=== PATIENT | female | born 2000 | race Caucasian/White ===

== ENCOUNTER 2025-03-12 12:56 | Outpatient (REF) | payer OTHER, SELFPAY | END 2025-03-12 12:57 | disposition home or self-care (01) | LOC: HO.LAB 12:56 | PROVIDERS: PCP Physician Assistant Medical; Visit Provider Nurse Practitioner Family | DX: Z13.89 Encounter for screening for other disorder (principal) ==

== ENCOUNTER 2025-03-12 12:56 | Outpatient (AMB) | payer OTHER, SELFPAY ==
--- OUTSIDE RECORDS SUMMARY | 2024-08-28 06:15 | XMS_ITS ---
Author Organization [facility] [address] Address [address] [place] [address] Care Team Providers Care Digital Ad Trafficker Name Role Phone ANSLEY ALLISON Unavailable [phone] REASON FOR VISIT pt here for Tirzepatide injection; pt signed consent; 5mg administered subcutaneously into left arm; pt tolerated well and left in stable condition Medications Medication SIG (Take, Route, Frequency, Duration) Notes Start Date End Date Status Tirzepatide-Weight Management 2.5 MG/0.5ML 0.5 mL Subcutaneous once a week Active Zepbound 5 MG/0.5ML 5mg weekly Subcutane ous weekly; Duration: 30 days Active Encounters Encounter Location Date Provider Diagnosis [facility] [address] [place] [phone] 08/28/2024 ANSLEY ALLISON Plan Of Treatment No Information Medications Administered Medication Instructions Date of Administration Dosage Notes Tirzepatide 08/28/2024 5 mg Progress Notes * DAVID RIBEIRO MDOB: 8 (24 yo F)Acc No.[id number]:08/28/2024 Patient: Aruna WagonerEZRAGEOVANIDAVID M Provider: Vitor ALLISON NP :2000 A ge:24 Y S ex:Female Date:08/28/2024 Address:[address] , [facility] Subjective: * Chief Complaints: * 1 . pt here for Tirzepatide injection; pt signed consent; 5mg administered subcutaneously into left arm; pt tolerated well and left in stable condition. * Medical History: * Medications: T aking Zepbound 5 MG/0.5ML Solution Auto-injector 5mg weekly Subcutaneous weekly , Taking Tirzepatide-Weight Management 2.5 MG/0.5ML Solution Auto-injector 0.5 mL Subcutaneous once a week Objective: * Vitals: Assessment: Plan: * Treatment: * Therapeutic Injections: Tirzepatide : 5 mg (Route: Subcutaneous) given by Lisa Landry on subcutaneus * Images: Billing Information: * Visit Code: * Procedure Codes: * Electronic signature of JOSY ALLISON on 03/12/2025 at 03:48 PM EDT Sign off status: Pending * Provider: Vitor ALLISON NP Date: 0 08/28/2024 Generated for Fanny victoria/Jozef/Alon on: 03/12/2025 03:48 PM EDT
--- OUTSIDE RECORDS SUMMARY | 2024-09-11 06:15 | XMS_ITS ---
Author Organization [facility] [address] Address [address] [place] [address] Care Team Providers Care Soft Work Cigar Machine Operator Name Role Phone ANSLEY ALLISON Unavailable [phone] REASON FOR VISIT 5mg Encounters Encounter Location Date Provider Diagnosis [facility] [address] [address] 09/11/2024 ANSLEY ALLISON Plan Of Treatment No Information Progress Notes * DAVID RIBEIRO MDOB: 8 (24 yo F)Acc No.[id number]:09/11/2024 Patient: DAVID FINNEY Provider: Vitor ALLISON NP :2000 A ge:24 Y S ex:Female Date:09/11/2024 Address:[address] , [facility] Subjective: * Chief Complaints: * 1 . 5mg. * Medical History: Objective: * Vitals: Assessment: Plan: * Treatment: * Images: Billing Information: * Visit Code: * Procedure Codes: * Electronic signature of JOSY ALLISON on 03/12/2025 at 03:48 PM EDT Sign off status: Pending * Provider: Vitor ALLISON NP Date: 09/11/2024 Generated for Fanny victoria/Jozef/Wesitting on: 0 03/12/2025 03:48 PM EDT
--- OUTSIDE RECORDS SUMMARY | 2024-09-12 06:15 | XMS_ITS ---
Author Organization [facility] [address] Address [address] [place] [address] Care Team Providers Care Manager Recruitment Name Role Phone ANSLEY ALLISON Unavailable [phone] REASON FOR VISIT 2.5mg Encounters Encounter Location Date Provider Diagnosis [facility] [address] [address] 09/12/2024 ANSLEY ALLISON Plan Of Treatment No Information Progress Notes * DAVID RIBEIRO MDOB: 8 (24 yo F)Acc No.[id number]:09/12/2024 Patient: DAVID FINNEY Provider: Vitor ALLISON NP :2000 A ge:24 Y S ex:Female Date:09/12/2024 Address:[address] , [facility] Subjective: * Chief Complaints: * 1 . 2.5mg. * Medical History: Objective: * Vitals: Assessment: Plan: * Treatment: * Images: Billing Information: * Visit Code: * Procedure Codes: * Electronic signature of JOSY ALLISON on 03/12/2025 at 03:49 PM EDT Sign off status: Pending * Provider: Vitor ALLISON NP Date: 09/12/2024 Generated for Fanny victoria/Jozef/eTransmitting on: 0 03/12/2025 03:49 PM EDT
--- OUTSIDE RECORDS SUMMARY | 2024-09-25 06:45 | XMS_ITS ---
Author Organization [facility] [address] Address [address] [place] [address] Care Team Providers Care Transfer Car Operator Drier Name Role Phone ANSLEY ALLISON Unavailable [phone] REASON FOR VISIT trize 5mg Encounters Encounter Location Date Provider Diagnosis [facility] [address] [address] 09/25/2024 ANSLEY ALLISON Plan Of Treatment No Information Progress Notes * DAVID RIBEIRO MDOB: 8 (24 yo F)Acc No.[id number]:09/25/2024 Patient: DAVID FINNEY Provider: Vitor ALLISON NP :2000 A ge:24 Y S ex:Female Date:09/25/2024 Address:[address] , [facility] Subjective: * Chief Complaints: * 1 . Trize 5mg. * Medical History: Objective: * Vitals: Assessment: Plan: * Treatment: * Images: Billing Information: * Visit Code: * Procedure Codes: * Electronic signature of JOSY ALILSON on 03/12/2025 at 03:48 PM EDT Sign off status: Pending * Provider: Vitor ALLISON NP Date: 0 09/25/2024 Generated for Fanny victoria/Jozef/eTransmitting on: 0 03/12/2025 03:48 PM EDT
--- NOTE | 2025-03-12 12:59 | MHC.OFFVIS ---
Vital Signs 03/12/25 13:12 Height 5 ft 6 in Weight 170 lb BMI 27.4 BP 136/76 Blood Pressure Location Rt brachial Position Sitting Pulse 76 Pulse Source Pulse Oximeter Pulse Oximetry (%) 98 Oxygen Delivery Method Room Air Intake Visit Reasons: GERD initial eval. Added from cancellation list Intake Note: New pt for initial GERD eval CC: C.O. GERD, foreign body sensation in the throat / upper chest, generalized abd pain, and intermittent constipation and diarrhea. No additional concerns. Pt reports taking omeprazole and pepto intermittently depending on severity of sx. Edge Trimming Machine Operator Required: No Accompanied by: Self / Same As Patient Allergies No Known Allergies Allergy (Verified 03/12/25 12:59) HPI HPI GERD initial eval. Added from cancellation list: Details: 24 years old female with past medical history of GERD is here today for initial consultation. Patient was sent to us by her PCP. Patient reports that for a long time she has been having epigastric pain postprandially. She feels like no matter what she eats she will have pain. Abdominal bloating. Bowel movements between constipation and diarrhea. Patient tried changing her diet. Patient feels many times like food gets stuck in her throat when eating. It happens randomly not only will solid food sometimes with soft food as well. Patient reports occasional dyspepsia with dysphagia, without odynophagia. Patient denies melena, hematochezia, unintentional weight loss or ribbon like stools. Patient takes omeprazole and sometimes Pepto-Bismol when she has symptoms. Does not take anything on a regular basis [facility] Medical History (Updated 04/16/25 @ 19:28 by Maria Del Carmen Goldman [facility]) Migraine GERD (gastroesophageal reflux disease) Surgical History (Updated 03/12/25 @ 13:09 by JESSICA Martinez) H/O rhinoplasty Family History (Updated 03/12/25 @ 13:04 by JESSICA Martinez) Maternal Grandfather CHF (congestive heart failure) Maternal Grandmother Breast cancer Thyroid cancer Paternal Grandfather Diabetes Mother Hemochromatosis Social History (Updated 03/12/25 @ 13:04 by JESSICA Martinez) Alcohol intake: never Patient Tobacco Use Status: Never used Tobacco Review of Systems Const Denies weight gain and Denies weight loss ENT Reports no additional complaints, Reports dysphagia and Denies odynophagia Card Reports no additional complaints Resp Reports no additional complaints GI Reports abdominal pain (Epigastric), Denies belching, Denies melena, Reports bloating, Denies change in bowel habits, Reports constipation, Reports dysphagia, Denies excessive flatus, Reports dyspepsia, Reports heartburn, Denies diarrhea, Reports loose stools, Denies nausea, Denies odynophagia and Denies vomiting Reports no additional complaints Musc Reports no additional complaints Neuro Reports no additional complaints Psych Reports no additional complaints Endo Reports no additional complaints Physical Exam Vital Signs: Last Vital Signs Pulse 76 03/12/25 13:12 BP 136/76 03/12/25 13:12 Pulse Ox 98 03/12/25 13:12 Oxygen Delivery Method Room Air 03/12/25 13:12 BMI result Body Mass Index 27.4 Const General: healthy appearing, no acute distress and well developed Nutritional Appearance: well nourished Orientation/consciousness: patient oriented x3 Resp Effort & Inspection: normal respiratory effort, able to speak in complete sentences, no tracheal deviation and symmetric chest movement Auscultation: clear to auscultation bilaterally Cardio Rate: regular rate GI Inspection: Yes normal to inspection and No distended Palpation (GI): Soft to palpation, not firm, nontender and No hepatosplenomegaly present Auscultation: normal bowel sounds General: Yes no CVA tenderness Back/Spine/Pelvis Back: no CVA tenderness Skin General skin exam: elasticity normal, turgor normal and dry skin Neuro General: patient oriented x3 Psych Appearance: grossly normal Mental Status: mental status grossly normal Assessment & Plan Assessment & Plan (1) GERD (gastroesophageal reflux disease): Code(s): K21.9 - Gastro-esophageal reflux disease without esophagitis Category: Medical Qualifiers: Esophagitis presence: esophagitis presence not specified Qualified Code(s): K21.9 - Gastro-esophageal reflux disease without esophagitis (2) Globus sensation: Code(s): R09.89 - Other specified symptoms and signs involving the circulatory and respiratory systems (3) Postprandial epigastric pain: Code(s): R10.13 - Epigastric pain (4) Postprandial abdominal bloating: Code(s): R14.0 - Abdominal distension (gaseous) (5) Dysphagia: Code(s): R13.10 - Dysphagia, unspecified Qualifiers: Dysphagia type: esophageal phase Qualified Code(s): R13.19 - Other dysphagia Plan Patient was encouraged to avoid dietary triggers and late night snacking. Staying upright for minimum 3 hours after meals discussed with patient. Patient will be sent for upper endoscopy. Will check H pylori breath test she will start taking Pepcid twice a day and return for testing. Will resume with omeprazole daily after her test. If positive will treat empirically. Will be sent for upper GI with barium swallow as well. Will check fecal calprotectin, transglutaminase, CBC, tired H study, vitamin D, B12, folate and lipase ordered. I will send patient for colonoscopy as well. Change in bowel pattern. Rule out IBD versus IBS. We however discussed with patient flow FODMAP diet. List of Food recommended as well as list of food to avoid given to patient. Orders: Orders Lipase 03/18/25 R10.9 - Unspecified abdominal pain Vitamin D 25-OH (D2 and D3) 03/18/25 E55.9 - Vitamin D deficiency, unspecified Transglutaminase Ab IgG 03/18/25 R10.9 - Unspecified abdominal pain C Reactive Protein 03/18/25 K58.9 - Irritable bowel syndrome, unspecified Calprotectin, Fecal 03/12/25 R15.9 - Full incontinence of feces H Pylori Breath Test 03/12/25 K21.9 - Gastro-esophageal reflux disease without esophagitis Comprehensive Met. Panel 03/18/25 K21.9 - Gastro-esophageal reflux disease without esophagitis Vitamin B12 and Folate 03/18/25 R19.7 - Diarrhea, unspecified TSH reflex Free T4 03/18/25 K59.00 - Constipation, unspecified Transglutaminase IgA 03/18/25 R10.9 - Unspecified abdominal pain FL upper GI w air w Ba Swallow 03/12/25 K21.9 - Gastro-esophageal reflux disease without esophagitis Referrals GI Procedure Notification Z12.11 - Encounter for screening for malignant neoplasm of colon Medications: New famotidine (Pepcid) 20 mg PO DAILY 30 tabs 0RF K21.9 - Gastro-esophageal reflux disease without esophagitis Coding Level of Care Code New Pt Level 4 (84965) Diagnoses Gastroesophageal reflux disease, unspecified whether esophagitis present K21.9 Esophagitis presence: esophagitis presence not specified Globus sensation R09.89 Postprandial epigastric pain R10.13 Postprandial abdominal bloating R14.0 Esophageal dysphagia R13.19 Dysphagia type: esophageal phase Time Spent (min) 50 Comment 35 minutes spent with patient and additional 15 minutes spent reviewing her records
[2025-03-12 13:12] VITALS: BP 136/76; PULSE 76; O2SAT 98; BMI 27.4
--- OUTSIDE RECORDS SUMMARY | 2025-03-12 15:48 | XMS_ITS | Clinical Summary ---
Author Organization [facility] Address [address] [place] [phone] Phone Care Team Providers Care History Tutor Name Role Phone Pcp, Unknown Primary Care Provider Unavailabl e Allergies No known active allergies Medications albuterol 90 mcg/actuation inhaler Inhale 2 puffs into the lungs every 6 (six) hours as needed for wheezing. 1 Inhaler 05/26/20 19 Active Additional Information Patient not taking.Reported on 08/24/2022 celecoxib (CELEBREX) 200 MG capsule TAKE 1 CAPSULE BY MOUTH TWICE DAILY. START 1 DAY PRE-OP 06/16/20 21 Active HYDROcodone-acetam inophen (NORCO) 5-325 mg per tablet TAKE 1 TABLET BY MOUTH EVERY 6 HOURS NEEDED FOR PAIN FOR 4 DAYS 06/16/20 21 Active ondansetron (ZOFRAN-ODT) 4 MG disintegrating tablet DISSOLVE 1 TABLET ON THE TONGUE EVERY 12 HOURS NEEDED FOR NAUSEA 06/16/20 21 Active spironolactone (ALDACTONE) 50 MG tablet Take 50 mg by mouth 2 (two) times a day. 04/06/20 21 Active tirzepatide (MOUNJARO) 2.5 mg/0.5 mL PnIj subcutaneous pen Inject 5 mg under the skin every 14 (fourteen) days. Active ondansetron (ZOFRAN-ODT) 4 MG disintegrating tablet (To-Go) Take 1-2 tablet(s) by mouth every 8 hours as needed for nausea/vomiting 6 tablet 08/31/19 25 Active Active Problems No known active problems Immunizations Immunization Administration Dates Next Due COVID-19 (Pre-04/11) Pfizer Vaccine, mRNA, PF 07/19/2021,11/03/2020,10/10/2020 DTaP 06/29/2002, 0,1998,09/01,1998 Dtap, 5 Pertussis Antigens 06/29/2002,,1998,09/01,1998 HPV,quadrivalent 05/23/2014,04/20/2013, 3 Hepatitis A, ped/adol, 2 dose 05/23/2014, 013 Hepatitis B 02/06/1999,1998,1998 Hib, unspecified formulation 07/30/1999, 1998,1998,07/16 Hib,PRP-T 08/17/1999, 9,1998,07/16 IPV 06/29/2002, 9,1998,07/16 Influenza Quadrivalent Prese rvative Free IM 04/29/2021,05/21/2016,02/15/2013 Influenza Quadrivalent w/ Pr eservative IM 05/08/2015,05/23/2014 Influenza, Unspecified Formulation 05/17,05/05/2021,04/21/2010,04/11 MMR 06/29/2002,07/30/1999 Meningococcal MCV4P 05/08/2015,01/14/2011 PPD Test 12/24/2021 Polio - OPV 05/01/1999,1998,1998 Tdap 07/19/2021,01/14/2011 Varicella 01/14/2011,04/11/2009,05/01/1999 Social History Tobacco Use Types Packs/Day Years Used Date Smoking Tobacco: Never Smokeless Tobacco: Never Tobacco Cessation:Counseling Given: Not Answered Alcohol Use Standard Drinks/Week Comments Yes 0 (1 standard drink = 0.6 oz pur e alcohol) socially Education Answer Date Recorded Are you interested in more education? Not on joe e 10/15/2022 Are you concerned about learning? Not on file 10/15/2022 No 10/15/2022 No 10/15/2022 Digital Access Answer Date Recorded No 11/13/2022 No 11/13/2022 Reliable internet access at home? Not on file 11/13/2022 Device with a working camera? Not on file Intimate Partner Violence Answer Date R ecorded Are you denied basic needs s uch as food, clothing, or medical care? No 08/30/2024 In the past 12 months have y ou been in a relationship with a person who hurts, threatens, or tries to control you? No 08/30/2024 Are you denied basic needs s uch as food, clothing, or medical care? No 08/30/2024 In the past 12 months have y ou been in a relationship with a person who hurts, threatens, or tries to control you? No 08/30/2024 Comments No Sex and Gender Information Value Date Recorded Sex Assigned at Female 08/30/2024 1:50 AM EDT Legal Sex Female 1:32 PM EST Gender Identity Female 08/30/2024 1:50 AM EDT Sexual Orientation Don't know 08/30/2024 1: 50 AM EDT Last Filed Vital Signs Vital Sign Reading Time Taken Comments Blood Pressure 133/68 08/30/2024 4:22 AM EDT Pulse 112 08/30/2024 4:22 AM EDT Temperature 36.9 C (98.4 F) 08/30/2024 4:22 AM EDT Respiratory Rate 17 08/30/2024 4:22 AM EDT Oxygen Saturation 99% 08/30/2024 4:22 AM EDT Inhaled Oxygen Concentration - - Weight 72.6 kg (160 lb) 08/30/2024 1:43 AM EDT Height 167.6 cm (5' 6 ) 08/30/2024 1:43 AM EDT Body Mass Index 25.82 08/30/2024 1:43 AM EDT Plan of Treatment Health Maintenance Due Date Last Done Comments DEPRESSION SCREENING 2010 HEPATITIS C SCREENING 2016 HIV ONE-TIME SCREENING (18-65 YEARS) 2016 PAP SMEAR 2019 SMOKING STATUS SCREENING (Once After 26 Yrs) 2024 INFLUENZA VACCINE (#1) 2025 2, 05/05/2021, 04/29/2021, Additional history exists COVID-19 VACCINE ( season) 2025 07/19/2021, 07/19/2021, 11/03/2020, Additional history exists POTASSIUM LEVEL 08/30/2025 08/30/2024 Adult Td,Tdap Booster 07/19/2031 07/19/2021, 011 HIB VACCINES Completed 08/17/1999, 07/21, 1998, Additional history exists HEPATITIS A VACCINES Completed 05/23/2014, 02/16/20 13 HPV VACCINES Completed 05/23/2014, 06/2012, 02/15/2013 MENINGOCOCCAL VACCINES (ACWY) Completed 05/08/2015, 01/14/2011 MENINGOCOCCAL VACCINES (B) Aged Out N o longer eligible based on patient's age to complete this topic PNEUMOCOCCAL VACCINES (0-49 years) Aged Out No longer eligible based on patient's age to complete this topic Medical Devices Not on file Procedures Procedure Name Priority Date/Time Associated Diagnosis Comments BASIC METABOLIC PANEL STAT 08/30/2024 2:11 AM EDT from Last 3 Months or Most Recently Relevant to Health Maintenance Results * (ABNORMAL) Basic metabolic panel (08/30/2024 2:11 AM EDT) SODIUM 139 133 - 146 mmol/L [facility] CHLORIDE 101 96 - 108 mmol/L [facility] POTASSIUM 3.9 3.3 - 5.1 mmol/L [facility] CO2 23 21 - 35 mmol/L [facility] BUN 9 6 - 19 mg/dL [facility] CREATININE 0.70 0.5 - 1.5 mg/dL [facility] GLUCOSE 136(H) 70 - 99 mg/dL [facility] CALCIUM 9.6 8.4 - 10.3 mg/dL [facility] EGFR >120 >59 mL/min/1.7 3m2 [facility] Comment:Estimated glomerular filtration rate calculated using the CKD-EPI refit equation. ANION GAP 19 10 - 20 mmol/L [facility] Blood 08/30/2024 2:11 AM EDT 08/30/2024 2:14 AM EDT us Sudhir Yadav DO LAB BLOOD ORDERABLES Final Re sult [facility] [address] [place] [id number] from Last 3 Months or Most Recently Relevant to Health Maintenance Insurance [facility] [employer] Care Teams History Tutor Relationship Specialty Start Date End Date Pcp, Unknown PCP - General 08/30/24 Additional Source Comments The information contained in this document represents components of the legal health record. It is not the complete legal health record.[facility]
--- OUTSIDE RECORDS SUMMARY | 2025-03-12 15:48 | XMS_ITS | Patient Health Record ---
Author Organization [facility] [address] Address [address] [place] [address] Care Team Providers Care Scrap Sawyer Name Role Phone ARCELIADOREEN ANSLEY Unavailable [phone] GUILHERME ELIZONDO Unavailable [phone] Sandra Minor Unavailable [phone] SAMSON JUAN ALBERTO Unavailable [phone] Allergies No Known Allergies Reason For Referral No Information Medications Medication SIG (Take, Route, Frequency, Duration) Notes Start Date End Date Status Tirzepatide-Weight Management 2.5 MG/0.5ML 0.5 mL Subcutaneous once a week Active Zepbound 5 MG/0.5ML 5mg weekly Subcutane ous weekly; Duration: 30 days Active Problems Problem Type SNOMED Code ICD Code Onset Dates Problem Status W/U Status Risk Notes Problem Overweight (565423278) Overweight (E66.3) Active confirmed Vital Signs Heart Rate 92 /min 08/14/2024 Blood pressure diastolic 58 mm Hg 08/14/2024 Oximetry 99 % 08/14/2024 Height 66 in 08/14/2024 Blood pressure systolic 110 mm Hg 08/14/2024 Weight 160 lbs 08/14/2024 BMI 25.82 kg/m2 08/14/2024 Encounters Encounter Location Date Provider Diagnosis [facility] [address] [facility] [address] [place] [address] 03/19/2024 ANSLEY ALLISON [facility] [address] [facility] [address] [place] [address] 03/26/2024 ANSLEY ALLISON [facility] [address] [facility] [address] [place] [address] 04/03/2024 ANSLEY ALLISON [facility] [address] [facility] [address] [place] [address] 04/10/2024 ANSLEY BORHOT [facility] [address] [address] [place] [address] 04/19/2024 Sandra Svrcek [facility] [address] [facility] [address] [place] [address] 05/04/2024 ANSLEY BORHOT [facility] [address] [facility] [address] [place], [place] 05/11/2024 ANSLEY BORHOT [facility] [address] [place] [address] 05/12/2024 GUERAOTTO ELIZONDO [facility] [address] [facility] [address] [place], [place] 05/21/2024 ANSLEY BORHOT [facility] [address] [facility] [address] [place], [place] 05/28/2024 ANSLEY BORHOT [facility] [address] [facility] [address] [place], [place] 06/04/2024 ANSLEY BORHOT [facility] [address] [facility] [address] [place], [place] 06/11/2024 ANSLEY BORHOT [facility] [address] [facility] [address] [place], [place] 06/18/2024 ANSLEY BORHOT [facility] [address] [facility] [address] [place], [place] 06/26/2024 ANSLEY BORHOT [facility] [address] [facility] [address] [place], [place] 07/18/2024 ANSLEY BORHOT [facility] [address] [facility] [address] [place] [address] 08/01/2024 ANSLEY BORHOT [facility] [address] [facility] [address] [place], [place] 08/28/2024 ANSLEY BORHOT [facility] [address] [place] [address] 04/28/2024 ANSLEY BORHOT Overweight E66.3 ; B [place] 27.0-27.9,adult Z68.27 and Dietary counseling and surveillance Z71.[address] [facility] [address] [facility] [address] [place], [place] /15/2025 ANSLEY ALLISON Overweight E66.3 ; B [place] 25.0-25.9,adult Z68.25 and Dietary counseling and surveillance Z71.[address] [facility] [address] [facility] [address] [place] [address] 08/14/2024 ANSLEY ALLISON Overweight E66.3 ; B [place] 25.0-25.9,adult Z68.25 and Dietary counseling and surveillance Z71.[address] [facility] [address] [facility] [address] [place] [address] 05/21/2024 ANSLEY PANIAGUAHOT [facility] [address] [facility] [address] [place] [address] 06/08/2024 ANSLEY ARCELIAHOT [facility] [address] [facility] [address] [place], [place] 09/11/2024 ANSLEY PANIAGUAHOT [facility] [address] [facility] [address] [place], [place] 10/23/2024 ANSLEY TELLOCitlalli Assessments Encounter Date Diagnosis (ICD Code) Assessment Notes Treatment Notes Treatment Clinical Notes Section Notes 04/28/2024 Overweight (ICD-10 - E66.3) #Weight Management We discussed criteria for weight loss medications including a BMI of 30 or greater or a BMI of 25-29.9 with comorbid conditions Will try for zbound 5mg depending on insurance cont 5mg comp Tirz Total time spent today was 30 minutes of which greater than 50% was spent on coordinating and counseling Patient has been found to be overweight with a BMI of (27). Patient has overweight class per BMI standards . We are a board certified obesity and weight management practice Patient has trialed behavioral modification, dietary restrictions and exercise for a minimum of 6 months The most recent [place] Association of clinical endocrinologists and [place] [employer] of endocrin[employer] guidelines recommend patients who have overweight BMI or obesity BMI, who also have metabolic syndrome, prediabetes, HLD, and other comorbidities or at risk of developing type 2 diabetes should aim for a weight loss goal of at least 10% of the baseline body weight Patient counseled regarding effects of GLP/GIP-1 agonists, and other FDA approved wgt loss meds with regards to a multifactorial approach of weight loss as mentioned above and not solely appetite suppression. Of note, some information is being carried forward from prior records for informational purposes only and is being cited so that efficiency, safety and quality of the patient's care is not compromised This note was prepared using voice recognition software and direct typing Please excuse inadvertent contract project manager or typing errors, or uncorrected word substitutions Although every attempt has been made by the provider to proofread this document, occasional misspellings and typographical errors may still be present Due to the previous pandemic, and the use of personal protective equipment (PPE) This may decrease voice recognition accuracy Inadvertent contract project manager errors may occur 04/28/2024 BMI 27.0-27.9,adult (ICD-10 - Z68.27) #Weight Management We discussed criteria for weight loss medications including a BMI of 30 or greater or a BMI of 25-29.9 with comorbid conditions Will try for zbound 5mg depending on insurance cont 5mg comp Tirz Total time spent today was 30 minutes of which greater than 50% was spent on coordinating and counseling Patient has been found to be overweight with a BMI of (27). Patient has overweight class per BMI standards . We are a board certified obesity and weight management practice Patient has trialed behavioral modification, dietary restrictions and exercise for a minimum of 6 months The most recent [place] [employer] of clinical endocrinologists and [employer] end[employer]in[employer] guidelines recommend patients who have overweight BMI or obesity BMI, who also have metabolic syndrome, prediabetes, HLD, and other comorbidities or at risk of developing type 2 diabetes should aim for a weight loss goal of at least 10% of the baseline body weight Patient counseled regarding effects of GLP/GIP-1 agonists, and other FDA approved wgt loss meds with regards to a multifactorial approach of weight loss as mentioned above and not solely appetite suppression. Of note, some information is being carried forward from prior records for informational purposes only and is being cited so that efficiency, safety and quality of the patient's care is not compromised This note was prepared using voice recognition software and direct typing Please excuse inadvertent contract project manager or typing errors, or uncorrected word substitutions Although every attempt has been made by the provider to proofread this document, occasional misspellings and typographical errors may still be present Due to the previous pandemic, and the use of personal protective equipment (PPE) This may decrease voice recognition accuracy Inadvertent contract project manager errors may occur 07/04/2024 Overweight (ICD-10 - E66.3) #Weight Management 07/04/2024 We will cut dosing by 50% and dose or every 2 weeks moving forward at 2.5 mg She is at target goal weight She will check with insurance company to see if [employer] [place] cover Zepbound Total time spent today was 30 minutes of which greater than 50% was spent on coordinating and counseling Patient has been found to be overweight with a BMI of (25). Patient has overweight class per BMI standards . We are a board certified obesity and weight management practice Patient has trialed behavioral modification, dietary restrictions and exercise for a minimum of 6 months The most recent [place] [employer] of clinical endocrinologists and [employer] endocrin[employer] guidelines recommend patients who have overweight BMI or obesity BMI, who also have metabolic syndrome, prediabetes, HLD, and other comorbidities or at risk of developing type 2 diabetes should aim for a weight loss goal of at least 10% of the baseline body weight Patient counseled regarding effects of GLP/GIP-1 agonists, and other FDA approved wgt loss meds with regards to a multifactorial approach of weight loss as mentioned above and not solely appetite suppression. Of note, some information is being carried forward from prior records for informational purposes only and is being cited so that efficiency, safety and quality of the patient's care is not compromised This note was prepared using voice recognition software and direct typing Please excuse inadvertent contract project manager or typing errors, or uncorrected word substitutions Although every attempt has been made by the provider to proofread this document, occasional misspellings and typographical errors may still be present Due to the previous pandemic, and the use of personal protective equipment (PPE) This may decrease voice recognition accuracy Inadvertent contract project manager errors may occur 07/04/2024 BMI 25.0-25.9,adult (ICD-10 - Z68.25) #Weight Management 07/04/2024 We will cut dosing by 50% and dose or every 2 weeks moving forward at 2.5 mg She is at target goal weight She will check with insurance company to see if [employer] [place] cover Zepbound Total time spent today was 30 minutes of which greater than 50% was spent on coordinating and counseling Patient has been found to be overweight with a BMI of (25). Patient has overweight class per BMI standards . We are a board certified obesity and weight management practice Patient has trialed behavioral modification, dietary restrictions and exercise for a minimum of 6 months The most recent [place] [employer] of clinical endocrinologists and [employer] endocrinology guidelines recommend patients who have overweight BMI or obesity BMI, who also have metabolic syndrome, prediabetes, HLD, and other comorbidities or at risk of developing type 2 diabetes should aim for a weight loss goal of at least 10% of the baseline body weight Patient counseled regarding effects of GLP/GIP-1 agonists, and other FDA approved wgt loss meds with regards to a multifactorial approach of weight loss as mentioned above and not solely appetite suppression. Of note, some information is being carried forward from prior records for informational purposes only and is being cited so that efficiency, safety and quality of the patient's care is not compromised This note was prepared using voice recognition software and direct typing Please excuse inadvertent contract project manager or typing errors, or uncorrected word substitutions Although every attempt has been made by the provider to proofread this document, occasional misspellings and typographical errors may still be present Due to the previous pandemic, and the use of personal protective equipment (PPE) This may decrease voice recognition accuracy Inadvertent contract project manager errors may occur 08/14/2024 Overweight (ICD-10 - E66.3) #Weight Management 08/14/2024 Increase to 5 mg every 2 weeks for maintenance She is at target goal weight She will check with [employer] to see if [employer] [place] cover Zepbound Total time spent today was 30 minutes of which greater than 50% was spent on coordinating and counseling Patient has been found to be overweight with a BMI of (25). Patient has overweight class per BMI standards . We are a board certified obesity and weight management practice Of note, some information is being carried forward from prior records for informational purposes only and is being cited so that efficiency, safety and quality of the patient's care is not compromised This note was prepared using voice recognition software and direct typing Please excuse inadvertent contract project manager or typing errors, or uncorrected word substitutions Although every attempt has been made by the provider to proofread this document, occasional misspellings and typographical errors may still be present Due to the previous pandemic, and the use of personal protective equipment (PPE) This may decrease voice recognition accuracy Inadvertent contract project manager errors may occur 07/04/2024 Dietary counseling and surveillance (ICD-10 - Z71.3) #Weight Management 07/04/2024 We will cut dosing by 50% and dose or every 2 weeks moving forward at 2.5 mg She is at target goal weight She will check with [employer] to see if [employer] [place] cover Zepbound Total time spent today was 30 minutes of which greater than 50% was spent on coordinating and counseling Patient has been found to be overweight with a BMI of (25). Patient has overweight class per BMI standards . We are a board certified obesity and weight management practice Patient has trialed behavioral modification, dietary restrictions and exercise for a minimum of 6 months The most recent [place] [employer] of clinical endocrinologists and [employer] endocrinology guidelines recommend patients who have overweight BMI or obesity BMI, who also have metabolic syndrome, prediabetes, HLD, and other comorbidities or at risk of developing type 2 diabetes should aim for a weight loss goal of at least 10% of the baseline body weight Patient counseled regarding effects of GLP/GIP-1 agonists, and other FDA approved wgt loss meds with regards to a multifactorial approach of weight loss as mentioned above and not solely appetite suppression. Of note, some information is being carried forward from prior records for informational purposes only and is being cited so that efficiency, safety and quality of the patient's care is not compromised This note was prepared using voice recognition software and direct typing Please excuse inadvertent contract project manager or typing errors, or uncorrected word substitutions Although every attempt has been made by the provider to proofread this document, occasional misspellings and typographical errors may still be present Due to the previous pandemic, and the use of personal protective equipment (PPE) This may decrease voice recognition accuracy Inadvertent contract project manager errors may occur 04/28/2024 Dietary counseling and surveillance (ICD-10 - Z71.3) #Weight Management We discussed criteria for weight loss medications including a BMI of 30 or greater or a BMI of 25-29.9 with comorbid conditions Will try for zbound 5mg depending on insurance cont 5mg comp Tirz Total time spent today was 30 minutes of which greater than 50% was spent on coordinating and counseling Patient has been found to be overweight with a BMI of (27). Patient has overweight class per BMI standards . We are a board certified obesity and weight management practice Patient has trialed behavioral modification, dietary restrictions and exercise for a minimum of 6 months The most recent [place] [employer] of clinical endocrinologists and [employer] of endocrinology guidelines recommend patients who have overweight BMI or obesity BMI, who also have metabolic syndrome, prediabetes, HLD, and other comorbidities or at risk of developing type 2 diabetes should aim for a weight loss goal of at least 10% of the baseline body weight Patient counseled regarding effects of GLP/GIP-1 agonists, and other FDA approved wgt loss meds with regards to a multifactorial approach of weight loss as mentioned above and not solely appetite suppression. Of note, some information is being carried forward from prior records for informational purposes only and is being cited so that efficiency, safety and quality of the patient's care is not compromised This note was prepared using voice recognition software and direct typing Please excuse inadvertent contract project manager or typing errors, or uncorrected word substitutions Although every attempt has been made by the provider to proofread this document, occasional misspellings and typographical errors may still be present Due to the previous pandemic, and the use of personal protective equipment (PPE) This may decrease voice recognition accuracy Inadvertent contract project manager errors may occur 08/14/2024 BMI 25.0-25.9,adult (ICD-10 - Z68.25) #Weight Management 08/14/2024 Increase to 5 mg every 2 weeks for maintenance She is at target goal weight She will check with [employer] to see if [employer] [place] cover Zepbound Total time spent today was 30 minutes of which greater than 50% was spent on coordinating and counseling Patient has been found to be overweight with a BMI of (25). Patient has overweight class per BMI standards . We are a board certified obesity and weight management practice Of note, some information is being carried forward from prior records for informational purposes only and is being cited so that efficiency, safety and quality of the patient's care is not compromised This note was prepared using voice recognition software and direct typing Please excuse inadvertent contract project manager or typing errors, or uncorrected word substitutions Although every attempt has been made by the provider to proofread this document, occasional misspellings and typographical errors may still be present Due to the previous pandemic, and the use of personal protective equipment (PPE) This may decrease voice recognition accuracy Inadvertent contract project manager errors may occur 08/14/2024 Dietary counseling and surveillance (ICD-10 - Z71.3) #Weight Management 08/14/2024 Increase to 5 mg every 2 weeks for maintenance She is at target goal weight She will check with [employer] to see if [employer] [place] cover Zepbound Total time spent today was 30 minutes of which greater than 50% was spent on coordinating and counseling Patient has been found to be overweight with a BMI of (25). Patient has overweight class per BMI standards . We are a board certified obesity and weight management practice Of note, some information is being carried forward from prior records for informational purposes only and is being cited so that efficiency, safety and quality of the patient's care is not compromised This note was prepared using voice recognition software and direct typing Please excuse inadvertent contract project manager or typing errors, or uncorrected word substitutions Although every attempt has been made by the provider to proofread this document, occasional misspellings and typographical errors may still be present Due to the previous pandemic, and the use of personal protective equipment (PPE) This may decrease voice recognition accuracy Inadvertent contract project manager errors may occur Plan Of Treatment No Information Insurance Providers Payer Name Payer Address Payer Phone Subscriber Number Group Number Insured Name Patient Relationship to Insured Coverage Start Date Coverage End Date CLAFLIN NATHALYGRIM [address] [place] [id number] DAVID RIBEIRO Self - patient is the insured Medications Administered Medication Instructions Date of Administration Dosage Notes Tirzepatide 02/24/2024 2.5 mg Tirzepatide 03/02/2024 2.5 mg Tirzepatide 03/10/2024 2.5 mg Tirzepatide 03/19/2024 2.5 mg Tirzepatide 03/26/2024 2.5 mg Tirzepatide 04/03/2024 5 mg Tirzepatide 04/10/2024 5 mg Tirzepatide 04/19/2024 5 mg Tirzepatide 04/28/2024 5 mg Tirzepatide 05/04/2024 5 mg Tirzepatide 05/11/2024 7.5 mg Tirzepatide 05/21/2024 7.5 mg Tirzepatide 05/28/2024 7.5 mg Tirzepatide 06/04/2024 7.5 mg Tirzepatide 06/11/2024 7.5 mg Tirzepatide 06/18/2024 7.5 mg Tirzepatide 06/26/2024 7.5 mg Tirzepatide 07/04/2024 7.5 mg Tirzepatide 07/18/2024 2.5 mg Tirzepatide 08/01/2024 2.5 mg Tirzepatide 08/14/2024 5 mg Tirzepatide 08/28/2024 5 mg Medical (General) History Medical History History ICD Code weight gain/loss Surgical History Surgery Date(Month/Year) rhinoplasty 06/2021
--- OUTSIDE RECORDS SUMMARY | 2025-03-12 15:49 | XMS_ITS | Encounter Summary ---
Author Organization [facility] Address [address] [place] [address] Care Team Providers Care Compliance Associate Name Role Phone Community, Pcp Primary Care Provider Justin Patricio MD Primary Care Provider Unavail able Encounter Details Date Type Department Care Team Description 09/15/2020 Release of Information Medical Records [address] [place] [id number] Abstract, Provider Social History Tobacco Use Types Packs/Day Years Used Date Smoking Tobacco: Never Assessed Sex Assigned at Date Recorded Not on file Job Start Date Occupation Industry Not on file Not on file Not on file COVID-19 Exposure Response Date Recorded In the last month, have you been in contact with someone who was confirmed or suspected to have Coronavirus / COVID-19? No / Unsure 09/10/2020 3:22 PM EDT documented as of this encounter Plan of Treatment Not on file documented as of this encounter Visit Diagnoses Not on filedocumented in this encounter Care Teams Compliance Associate Relationship Specialty Start Date End Date Community, Pcp PCP - General Internal Medicine 09/08/20 10/25/23 Justin Bustillo MD PCP - General Internal Medicine 10/26/23 documented as of this encounter
--- OUTSIDE RECORDS SUMMARY | 2025-03-12 15:49 | XMS_ITS | Clinical Summary ---
Author Organization [facility] Address [address] [place] [phone] Phone Care Team Providers Care Appraiser [employer] Name Role Phone Unavailable Primary Care Provider Unavailabl e Immunizations Immunization Administration Dates Next Due DTaP 5 06/29/2002,10/22/1999,1998 ,1998,1998 Hep B, ped/adol 02/06/1999,1998,1998 Hib (PRP-T) 08/17/1999,1998,1998 ,1998 IPV 06/29/2002,05/01/1999,1998 ,1998 MMR 06/29/2002,07/30/1999 Varicella 05/01/1999 Family History Relation Name Status Comments Father Alive Father: Alive a nd well Mother Alive Mother: Alive a nd well Other Alive Family h/o: Ali ve and well Sister 1 Alive Sister: Alive a nd well, Alive and well Sister 2 Alive Sister: Alive a nd well, Alive and well Social History Tobacco Use Types Packs/Day Years Used Date Smoking Tobacco: Never Assessed Comments Unknown Sex and Gender Information Value Date Recorded Sex Assigned at Not on file Legal Sex Female 4:15 PM EDT Gender Identity Not on file Sexual Orientation Not on file Plan of Treatment Health Maintenance Due Date Last Done Comments Varicella Vaccines (2 of 2 - 2-dose childhood series) 07/27/2002 05/01/1999 DTaP,Tdap,and Td Vaccines (6 - Tdap) 2009 06/29/2002, 10/22/1999, 1998, Additional history exists HPV Vaccines (1 - 3-dose series) 2013 Influenza Vaccines (#1) 2025 COVID-19 Vaccine ( season) 2025 Hepatitis B Vaccines Completed 02/06/1999, 1998, 1998 HIB Vaccines Completed 08/17/1999, 10/18, 1998, Additional history exists IPV Vaccines Completed 06/29/2002, 04/20, 1998, Additional history exists MMR Vaccines Completed 06/29/2002, 07/30/1999 Hepatitis A Vaccines Aged Out No long er eligible based on patient's age to complete this topic Men B Vaccine Aged Out No longer elig ible based on patient's age to complete this topic Meningococcal Vaccine Aged Out No brenda dorothy eligible based on patient's age to complete this topic Pneumococcal Vaccine Aged Out No long er eligible based on patient's age to complete this topic
--- OUTSIDE RECORDS SUMMARY | 2025-03-12 15:49 | XMS_ITS | Encounter Summary ---
Author Organization [facility] Address [address] [place] [address] Phone Care Team Providers Care Sfdc Solution Architect Name Role Phone Elenita Orlando MD Primary Care Provider [phone] Encounter Details Date Type Department Care Team (Late st Contact Info) Description 02/03/2017 Conversion Encounter [facility] [address] [place] [address] Social History Tobacco Use Types Packs/Day Years Used Date Smoking Tobacco: Never Assessed Comments Unknown Sex and Gender Information Value Date Recorded Sex Assigned at Not on file Legal Sex Female 4:15 PM EDT Gender Identity Not on file Sexual Orientation Not on file documented as of this encounter Plan of Treatment Not on file documented as of this encounter Visit Diagnoses Not on filedocumented in this encounter Care Teams Sfdc Solution Architect Relationship Specialty Start Date End Date Elenita Orlando MD [address] [place] [address] PCP - General 01/28/17 10/05/22 documented as of this encounter
--- OUTSIDE RECORDS SUMMARY | 2025-03-12 15:49 | XMS_ITS | Encounter Summary ---
Author Organization [facility] Address [address] [place] [address] Care Team Providers Care Mainframe Applications Developer Name Role Phone Justin Bustillo MD Primary Care Provider Unavail able Encounter Details Date Type Department Care Team Description 12/12/2023 Transfer Records Medical Records [address] [place] [address] Justin Bustillo MD Social History Tobacco Use Types Packs/Day Years Used Date Smoking Tobacco: Never Smokeless Tobacco: Never Alcohol Use Standard Drinks/Week Comments Never 0 (1 standard drink = 0.6 oz pur e alcohol) Sex Assigned at Date Recorded Not on file Job Start Date Occupation Industry Not on file Not on file Not on file documented as of this encounter Plan of Treatment Not on file documented as of this encounter Visit Diagnoses Not on filedocumented in this encounter Care Teams Mainframe Applications Developer Relationship Specialty Start Date End Date Justin Bustillo MD PCP - General Internal Medicine 10/26/23 documented as of this encounter
--- OUTSIDE RECORDS SUMMARY | 2025-03-12 15:49 | XMS_ITS | Clinical Summary ---
Author Organization [facility] Address [address] [place] [address] Care Team Providers Care Principal Systems Architect Name Role Phone Justin Bustillo MD Primary Care Provider Unavail able Allergies No known active allergies Medications Medication Sig Dispensed Refills Start Date End Date Status simethicone (MYLICON) 80 MG chewable tablet CHEW AND SWALLOW 1 TABLET BY MOUTH THREE TIMES DAILY NEEDED FOR ABDOMINAL BLOATING 0 10/25/2023 Active omeprazole (PRILOSEC) 20 MG capsule 0 10/25/2023 Active Cholecalciferol (Vitamin D3) 25 MCG (1000 UT) Tab Take 1 Tablet by mouth daily. 0 10/26/2023 Active hyoscyamine (Levsin) 0.125 MG tablet Take 1 Tablet by mouth every 6 hours as needed for Cramping for up to 30 days. 120 Tablet 0 11/24/2023 Active Family History Medical History Relation Name Comments CA Breast Maternal Grandmother Relation Name Status Comments Father Alive Maternal Grandfather Maternal Grandmother Alive Mother Alive Paternal Grandfather Alive Paternal Grandmother Alive Sister 1 Alive Sister 2 Alive Social History Tobacco Use Types Packs/Day Years Used Date Smoking Tobacco: Never Smokeless Tobacco: Never Tobacco Cessation:Counseling Given: No Alcohol Use Standard Drinks/Week Comments Never 0 (1 standard drink = 0.6 oz pur e alcohol) Sex Assigned at Date Recorded Not on file Job Start Date Occupation Industry Not on file Not on file Not on file Last Filed Vital Signs Vital Sign Reading Time Taken Comments Blood Pressure 115/73 11/24/2023 2:28 PM EDT Pulse 82 11/24/2023 2:28 PM EDT Temperature - - Respiratory Rate 14 08/17/2022 2:00 PM EST Oxygen Saturation 98% 11/24/2023 2:28 PM EDT Inhaled Oxygen Concentration - - Weight 83.5 kg (184 lb) 11/24/2023 2:28 PM EDT Height 167.6 cm (5' 6 ) 11/24/2023 2:28 PM EDT Body Mass Index 29.7 11/24/2023 2:28 PM EDT Plan of Treatment Health Maintenance Due Date Last Done Comments Covid-19 Vaccine (#1) 1998 BASELINE HEALTH EXAM 18-39 2017 CHOLESTEROL SCREENING 2018 BMI CHECK/ADVISE 06/20/2024 08/17/2022, 08/17/2022 INFLUENZA (#1) 2025 CERVICAL CANCER SCREENING 08/17/2025 08/17/2022 DTAP/TDAP/TD (8 - Td or Tdap) 07/19/2031, 01/14/2011, 06/29/2002, Additional history exists PNEUMOCOCCAL VACCINE FOR HIG H RISK PATIENTS (#1) 2063 Care Teams Principal Systems Architect Relationship Specialty Start Date End Date Justin Bustillo MD PCP - General Internal Medicine 10/26/23
== END 2025-03-12 13:49 | disposition home or self-care (01) ==
LOC: HO.HGI 12:57
PROVIDERS: PCP Physician Assistant Medical; Visit Provider Nurse Practitioner Family
DX: K21.9 Gastro-esophageal reflux disease without esophagitis (principal); R09.89 Other specified symptoms and signs involving the circulatory and respiratory systems; R10.13 Epigastric pain; R14.0 Abdominal distension (gaseous); R13.19 Other dysphagia
CPT/HCPCS: 99204

== ENCOUNTER 2025-03-18 13:05 | Outpatient (REF) | payer OTHER, SELFPAY ==
--- OUTSIDE RECORDS SUMMARY | 2024-08-28 06:15 | XMS_ITS ---
Author Organization [facility] [address] Address [address] [place] [address] Care Team Providers Care Gun Barrel Finisher Name Role Phone ANSLEY ALLISON Unavailable [phone] REASON FOR VISIT pt here for Tirzepatide [...] Active Encounters Encounter Location Date Provider Diagnosis [facility] [address] [place] [phone] 08/28/2024 ANSLEY ALLISON Plan Of Treatment No Information Medications Administered Medication Instructions Date of Administration Dosage Notes Tirzepatide 08/28/2024 5 mg Progress Notes * DAVID RIBEIRO MDOB: 8 (24 yo F)Acc No.[id number]:08/28/2024 Patient: Aruna WagonerEZRAGEOVANIDAVID M Provider: Vitor ALLISON NP :2000 A ge:24 Y S ex:Female Date:08/28/2024 Address:[address] , [facility] Subjective: * Chief Complaints: * 1 . [...] * Electronic signature of JOSY ALLISON on 03/18/2025 at 02:22 PM EDT Sign off status: Pending * Provider: Vitor ALLISON NP Date: 0 08/28/2024 Generated for Fanny victoria/Jozef/Alon on: 03/18/2025 02:22 PM EDT
--- OUTSIDE RECORDS SUMMARY | 2024-09-11 06:15 | XMS_ITS ---
Author Organization [facility] [address] Address [address] [place] [address] Care Team Providers Care Shipping Agent Name Role Phone ANSLEY ALLISON Unavailable [phone] REASON FOR VISIT 5mg Encounters Encounter Location Date Provider Diagnosis [facility] [address] [address] 09/11/2024 ANSLEY ALLISON Plan Of Treatment No Information Progress Notes * DAVID RIBEIRO MDOB: 8 (24 yo F)Acc No.[id number]:09/11/2024 Patient: DAVID FINNEY Provider: Vitor ALLISON NP :2000 A ge:24 Y S ex:Female Date:09/11/2024 Address:[address] , [facility] Subjective: * Chief Complaints: * 1 . 5mg. * Medical History: Objective: * Vitals: Assessment: Plan: * Treatment: * Images: Billing Information: * Visit Code: * Procedure Codes: * Electronic signature of JOSY ALLISON on 03/18/2025 at 02:22 PM EDT Sign off status: Pending * Provider: Vitor ALLISON NP Date: 09/11/2024 Generated for Fanny victoria/Jozef/Wesitting on: 0 03/18/2025 02:22 PM EDT
--- OUTSIDE RECORDS SUMMARY | 2024-09-12 06:15 | XMS_ITS ---
Author Organization [facility] [address] Address [address] [place] [address] Care Team Providers Care Mixer Operator Raw Salt Name Role Phone ANSLEY ALLISON Unavailable [phone] REASON FOR VISIT 2.5mg Encounters Encounter Location Date Provider Diagnosis [facility] [address] [address] 09/12/2024 ANSLEY ALLISON Plan Of Treatment No Information Progress Notes * DAVID RIBEIRO MDOB: 8 (24 yo F)Acc No.[id number]:09/12/2024 Patient: DAVID FINNEY Provider: Vitor ALLISON NP :2000 A ge:24 Y S ex:Female Date:09/12/2024 Address:[address] , [facility] Subjective: * Chief Complaints: * 1 . 2.5mg. * Medical History: Objective: * Vitals: Assessment: Plan: * Treatment: * Images: Billing Information: * Visit Code: * Procedure Codes: * Electronic signature of JOSY ALLISON on 03/18/2025 at 02:22 PM EDT Sign off status: Pending * Provider: Vitor ALLISON NP Date: 09/12/2024 Generated for Fanny victoria/Jozef/eTransmitting on: 03/18/2025 02:22 PM EDT
--- OUTSIDE RECORDS SUMMARY | 2024-09-25 06:45 | XMS_ITS ---
Author Organization [facility] [address] Address [address] [place] [address] Care Team Providers Care Strategic Account Executive Name Role Phone ANSLEY ALLISON Unavailable [phone] REASON FOR VISIT trize 5mg Encounters Encounter Location Date Provider Diagnosis [facility] [address] [address] 09/25/2024 ANSLEY ALLISON Plan Of Treatment No Information Progress Notes * DAVID RIBEIRO MDOB: 8 (24 yo F)Acc No.[id number]:09/25/2024 Patient: DAVID FINNEY Provider: Vitor ALLISON NP :2000 A ge:24 Y S ex:Female Date:09/25/2024 Address:[address] , [facility] Subjective: * Chief Complaints: * 1 . Trize 5mg. * Medical History: Objective: * Vitals: Assessment: Plan: * Treatment: * Images: Billing Information: * Visit Code: * Procedure Codes: * Electronic signature of JOSY ALLISON on 03/18/2025 at 02:22 PM EDT Sign off status: Pending * Provider: Vitor ALLISON NP Date: 0 09/25/2024 Generated for Fanny victoria/Jozef/eTransmitting on: 0 03/18/2025 02:22 PM EDT
--- OUTSIDE RECORDS SUMMARY | 2025-03-18 14:22 | XMS_ITS | Patient Health Record ---
Author Organization [facility] [address] Address [address] [place] [address] Care Team Providers Care Soil Sampler Name Role Phone ARCELIADOREEN ANSLEY Unavailable [phone] GUILHERME ELIZONDO Unavailable [phone] Sandra Minor Unavailable [phone] SAMSON JUAN ALBERTO Unavailable [phone] Allergies No Known Allergies Reason For Referral No Information Medications Medication SIG (Take, Route, Frequency, Duration) Notes Start Date End Date Status Tirzepatide-Weight Management 2.5 MG/0.5ML 0.5 mL Subcutaneous once a week Active Zepbound 5 MG/0.5ML 5mg weekly Subcutane ous weekly; Duration: 30 days Active Problems Problem Type SNOMED Code ICD Code Onset Dates Problem Status W/U Status Risk Notes Problem Overweight (844152642) Overweight (E66.3) Active confirmed Vital Signs Heart Rate 92 /min 08/14/2024 Blood pressure diastolic 58 mm Hg 08/14/2024 Oximetry 99 % 08/14/2024 Height 66 in 08/14/2024 Blood pressure systolic 110 mm Hg 08/14/2024 Weight 160 lbs 08/14/2024 BMI 25.82 kg/m2 08/14/2024 Encounters Encounter Location Date Provider Diagnosis [facility] [address] [facility] [address] [place] [address] 03/19/2024 ANSLEY ALLISON [facility] [address] [facility] [address] [place] [address] 03/26/2024 ANSLEY ALLISON [facility] [address] [facility] [address] [place] [address] 04/03/2024 ANSLEY ALLISON [facility] [address] [address] [place] [address] 04/10/2024 ANSLEY BORHOT [facility] [address] [place] [address] 04/19/2024 Sandra Svrcek [facility] [address] [address] [place] [address] 05/04/2024 ANSLEY BORHOT [facility] [address] [facility] [address] [place], [place] 05/11/2024 ANSLEY BORHOT [facility] [address] [place] [address] 05/12/2024 GUERAOTTO ELIZONDO [facility] [address] [facility] [address] [place], [place] 05/21/2024 ANSLEY BORHOT [facility] [address] [facility] [address] [place], [place] 05/28/2024 ANSLEY BORHOT [facility] [address] [facility] [address] [place], [place] 06/04/2024 ANSLEY BORHOT [facility] [address] [facility] [address] [place], [place] 06/11/2024 ANSLEY BORHOT [facility] [address] [facility] [address] [place], [place] 06/18/2024 ANSLEY BORHOT [facility] [address] [facility] [address] [place], [place] 06/26/2024 ANSLEY BORHOT [facility] [address] [facility] [address] [place], [place] 07/18/2024 ANSLEY BORHOT [facility] [address] [address] [place] [address] 08/01/2024 ANSLEY BORHOT [facility] [address] [address] [place], [place] 08/28/2024 ANSLEY BORHOT [facility] [address] [place] [address] 04/28/2024 ANSLEY BORHOT Overweight E66.3 ; B CT 27.0-27.9,adult Z68.27 and Dietary counseling and surveillance Z71.[address] [facility] [address] [address] [place], [place] /15/2025 ANSLEY ALLISON Overweight E66.3 ; B CT 25.0-25.9,adult Z68.25 and Dietary counseling and surveillance Z71.3 [facility] [address] [address] [place] [address] 08/14/2024 ANSLEY ALLISON Overweight E66.3 ; B CT 25.0-25.9,adult Z68.25 and Dietary counseling and surveillance Z71.[address] [facility] [address] [address] [place] [address] 05/21/2024 ANSLEY PANIAGUAHOT [facility] [address] [facility] [address] [place] [address] 06/08/2024 ANSLEY ARCELIAHOT [facility] [address] [facility] [address] [place], [place] 09/11/2024 ANSLEY PANIAGUAHOT [facility] [address] [facility] [address] [place], [place] 10/23/2024 ANSLEY TELLOCitlalli Assessments Encounter Date [...] minimum of 6 months The most recent [place] [employer] clinical endocrinologists and [employer]ocrin[employer] guidelines recommend patients who [...] software and direct typing Please excuse inadvertent mumps developer or typing errors, or uncorrected word substitutions Although every attempt has been made by the provider to proofread this document, occasional misspellings and typographical errors may still be present Due to the previous pandemic, and the use of personal protective equipment (PPE) This may decrease voice recognition accuracy Inadvertent mumps developer errors may occur 04/28/2024 BMI 27.0-27.9,adult (ICD-10 [...] minimum of 6 months The most recent [place] [employer]ocrinologists and [employer] guidelines recommend patients who [...] software and direct typing Please excuse inadvertent mumps developer or typing errors, or uncorrected word substitutions Although every attempt has been made by the provider to proofread this document, occasional misspellings and typographical errors may still be present Due to the previous pandemic, and the use of personal protective equipment (PPE) This may decrease voice recognition accuracy Inadvertent mumps developer errors may occur 07/04/2024 Overweight (ICD-10 - E66.3) #Weight Management 07/04/2024 We will cut dosing by 50% and dose or every 2 weeks moving forward at 2.5 mg She is at target goal weight She will check with insurance company to see if [employer] [place] cover Zepbound Total time spent today was [...] minimum of 6 months The most recent [place] [employer]ocrinologists and [employer] guidelines recommend patients who [...] software and direct typing Please excuse inadvertent mumps developer or typing errors, or uncorrected word substitutions Although every attempt has been made by the provider to proofread this document, occasional misspellings and typographical errors may still be present Due to the previous pandemic, and the use of personal protective equipment (PPE) This may decrease voice recognition accuracy Inadvertent mumps developer errors may occur 07/04/2024 BMI 25.0-25.9,adult (ICD-10 - Z68.25) #Weight Management 07/04/2024 We will cut dosing by 50% and dose or every 2 weeks moving forward at 2.5 mg She is at target goal weight She will check with insurance company to see if [employer] [place] cover Zepbound Total time spent today was [...] minimum of 6 months The most recent [place] [employer] clinical [employer]ocrinologists and [employer] guidelines recommend patients who [...] software and direct typing Please excuse inadvertent mumps developer or typing errors, or uncorrected word substitutions Although every attempt has been made by the provider to proofread this document, occasional misspellings and typographical errors may still be present Due to the previous pandemic, and the use of personal protective equipment (PPE) This may decrease voice recognition accuracy Inadvertent mumps developer errors may occur 08/14/2024 Overweight (ICD-10 - E66.3) #Weight Management 08/14/2024 Increase to 5 mg every 2 weeks for maintenance She is at target goal weight She will check with [employer] to see if [employer] [place] cover Zepbound Total time spent today was [...] software and direct typing Please excuse inadvertent mumps developer or typing errors, or uncorrected word substitutions Although every attempt has been made by the provider to proofread this document, occasional misspellings and typographical errors may still be present Due to the previous pandemic, and the use of personal protective equipment (PPE) This may decrease voice recognition accuracy Inadvertent mumps developer errors may occur 07/04/2024 Dietary counseling and surveillance (ICD-10 - Z71.3) #Weight Management 07/04/2024 We will cut dosing by 50% and dose or every 2 weeks moving forward at 2.5 mg She is at target goal weight She will check with [employer] to see if [employer] [place] cover Zepbound Total time spent today was [...] minimum of 6 months The most recent [place] [employer] of clinical endocrinologists and [employer]in[employer] guidelines recommend patients who [...] software and direct typing Please excuse inadvertent mumps developer or typing errors, or uncorrected word substitutions Although every attempt has been made by the provider to proofread this document, occasional misspellings and typographical errors may still be present Due to the previous pandemic, and the use of personal protective equipment (PPE) This may decrease voice recognition accuracy Inadvertent mumps developer errors may occur 04/28/2024 Dietary counseling and [...] minimum of 6 months The most recent [place] [employer] of clinical endocrinologists and [employer] end[employer]in[employer] guidelines recommend patients who [...] software and direct typing Please excuse inadvertent mumps developer or typing errors, or uncorrected word substitutions Although every attempt has been made by the provider to proofread this document, occasional misspellings and typographical errors may still be present Due to the previous pandemic, and the use of personal protective equipment (PPE) This may decrease voice recognition accuracy Inadvertent mumps developer errors may occur 08/14/2024 BMI 25.0-25.9,adult (ICD-10 - Z68.25) #Weight Management 08/14/2024 Increase to 5 mg every 2 weeks for maintenance She is at target goal weight She will check with [employer] to see if [employer] [place] cover Zepbound Total time spent today was [...] software and direct typing Please excuse inadvertent mumps developer or typing errors, or uncorrected word substitutions Although every attempt has been made by the provider to proofread this document, occasional misspellings and typographical errors may still be present Due to the previous pandemic, and the use of personal protective equipment (PPE) This may decrease voice recognition accuracy Inadvertent mumps developer errors may occur 08/14/2024 Dietary counseling and surveillance (ICD-10 - Z71.3) #Weight Management 08/14/2024 Increase to 5 mg every 2 weeks for maintenance She is at target goal weight She will check with [employer] to see if [employer] [place] cover Zepbound Total time spent today was [...] software and direct typing Please excuse inadvertent mumps developer or typing errors, or uncorrected word substitutions Although every attempt has been made by the provider to proofread this document, occasional misspellings and typographical errors may still be present Due to the previous pandemic, and the use of personal protective equipment (PPE) This may decrease voice recognition accuracy Inadvertent mumps developer errors may occur Plan Of Treatment No Information Insurance Providers Payer Name Payer Address Payer Phone Subscriber Number Group Number Insured Name Patient Relationship to Insured Coverage Start Date Coverage End Date [employer] [id number] [place] [id number] DAVID RIBEIRO Self - patient is the [...]
[2025-03-18 14:34] LABS: Alanine Aminotransferase 16 U/L (0-31); Albumin Level 4.6 g/dL (3.5-5.0); Alkaline Phosphatase 61 U/L (39-117); Anion Gap 10 (12-20); Aspartate Amino Transferase 20 U/L (5-31); Blood Urea Nitrogen 15 mg/dL (9-16); Calcium 9.5 mg/dL (8.4-10.2); Carbon Dioxide 29 mmol/L (22-29); Chloride 105 mmol/L (96-108); Estimated Glomerular Filt Rate > 60; Lipase 24 U/L (8-78); Potassium 4.9 mmol/L (3.3-5.1); Sodium 139 mmol/L (135-145); Total Protein 7.5 g/dL (6.5-8.0)
[2025-03-18 15:00] LABS: Folate 8.7 ng/mL (> or = 4.0); Vitamin B12 275 pg/mL (200-900)
[2025-03-19 22:38] LABS: Transglutaminase Ab IgG <1.0 U/mL
[2025-03-22 13:53] LABS: Vitamin D 25-OH, D2 <4 ng/mL; Vitamin D 25-OH, D3 27 ng/mL; Vitamin D 25-OH, Total 27 ng/mL (30-100)
== END 2025-03-18 13:06 | disposition home or self-care (01) ==
LOC: HO.LAB 13:05
PROVIDERS: PCP Nurse Practitioner Family; Visit Provider Nurse Practitioner Family
DX: K21.9 Gastro-esophageal reflux disease without esophagitis (principal); K58.9 Irritable bowel syndrome, unspecified; E55.9 Vitamin D deficiency, unspecified; K59.00 Constipation, unspecified; R19.7 Diarrhea, unspecified; R10.9 Unspecified abdominal pain
CPT/HCPCS: 36415; 80053; 82306; 82607; 82746; 83690; 84443; 86140; 86364

== ENCOUNTER 2025-03-26 17:30 | Outpatient (REF) | payer OTHER, SELFPAY ==
[2025-04-04 03:04] LABS: Calprotectin, Fecal <5 mcg/g
== END 2025-03-26 17:31 | disposition home or self-care (01) ==
LOC: HO.LNP 17:30
PROVIDERS: Visit Provider Nurse Practitioner Family
DX: R15.9 Full incontinence of feces (principal)
CPT/HCPCS: 83993

== ENCOUNTER 2025-03-27 12:50 | Outpatient (REF) | payer OTHER, SELFPAY | END 2025-03-27 12:51 | disposition home or self-care (01) | LOC: HO.LNP 12:50 | PROVIDERS: PCP Nurse Practitioner Family; Visit Provider Nurse Practitioner Family | DX: K21.9 Gastro-esophageal reflux disease without esophagitis (principal) | CPT/HCPCS: 83013 ==

== ENCOUNTER → 2025-03-27 12:50 | Outpatient (AMB) | payer OTHER, SELFPAY ==
--- NOTE | 2025-03-27 13:01 | AM.OFFVISNUR ---
Intake Visit Reasons: H Pylori Testing, HOLD PPI Allergies No Known Allergies Allergy (Verified 03/12/25 12:59) Nursing Note Patient presents for collection of?H Pylori?breath test. Patient has been fasting for 1 hour (nothing to eat, drink, no chewing gum or smoking) has not taken any antacid medication for at least 2 weeks and has no allergies to artificial sweeteners.?? Assessment & Plan Assessment & Plan (1) GERD (gastroesophageal reflux disease): Code(s): K21.9 - Gastro-esophageal reflux disease without esophagitis Category: Medical Plan Patient presents for collection of?H Pylori?breath test. Patient has been fasting for 1 hour (nothing to eat, drink, no chewing gum or smoking) has not taken any antacid medication for at least 2 weeks and has no allergies to artificial sweeteners.???This test checks for an overgrowth of bacteria in your stomach. We all have bacteria but some may have more than others. It is treatable. if the test comes back negative there is nothing else to do. If the test result is positive we will treat you with 2 antibiotics and a medication to decrease the acid in your stomach (PPI) for 2 weeks. Two weeks after you have completed the treatment we will retest you to make sure the overgrowth has resolved. Patient Instructions: Process for specimen collection and reason for testing was explained to the patient. Specimen collection. Patient instructed to take a deep breath and then exhale into the blue bag, filling it up as much as possible. Patient instructed to drink a mixture of water and the artificial sweetener with a straw. A 15 minute wait period was observed. Patient instructed to take a deep breath and then exhale into the pink bag, filling it up as much as possible.?? Coding Level of Care Code Established Pt Est Pt Level 1 (64903) Patient Type Established Medical Decision Making Straight Forward Diagnoses GERD (gastroesophageal reflux disease) K21.9
== END ==
LOC: HO.HGI 12:51
PROVIDERS: PCP Nurse Practitioner Family; Visit Provider Nurse Practitioner Family
DX: K21.9 Gastro-esophageal reflux disease without esophagitis (principal)
CPT/HCPCS: 99499

== ENCOUNTER 2025-04-02 08:44 | Day surgery (SDC) | payer OTHER, SELFPAY ==
--- OUTSIDE RECORDS SUMMARY | 2024-08-28 06:15 | XMS_ITS ---
Author Organization [facility] [address] Address [address] [place] [address] Care Team Providers Care Campus Security Director Name Role Phone ANSLEY ALLISON Unavailable [phone] REASON FOR VISIT pt here for Tirzepatide [...] Active Encounters Encounter Location Date Provider Diagnosis [facility] [address] [place] [phone] 08/28/2024 ANSLEY ALLISON Plan Of Treatment No Information Medications Administered Medication Instructions Date of Administration Dosage Notes Tirzepatide 08/28/2024 5 mg Progress Notes * DAVID RIBEIRO MDOB: 8 (24 yo F)Acc No.[id number]:08/28/2024 Patient: Aruna WagonerEZRAGEOVANIDAVID M Provider: Vitor ALLISON NP :2000 A ge:24 Y S ex:Female Date:08/28/2024 Address:[address] , [facility] Subjective: * Chief Complaints: * 1 . [...] * Electronic signature of JOSY ALLISON on 03/14/2025 at 05:15 PM EDT Sign off status: Pending * Provider: Vitor ALLISON NP Date: 0 08/28/2024 Generated for Fanny victoria/Jozef/Alon on: 03/14/2025 05:15 PM EDT
--- OUTSIDE RECORDS SUMMARY | 2024-09-11 06:15 | XMS_ITS ---
Author Organization [facility] [address] Address [address] [place] [address] Care Team Providers Care Metal Furnace Operator Name Role Phone ANSLEY ALLISON Unavailable [phone] REASON FOR VISIT 5mg Encounters Encounter Location Date Provider Diagnosis [facility] [address] [address] 09/11/2024 ANSLEY ALLISON Plan Of Treatment No Information Progress Notes * DAVID RIBEIRO MDOB: 8 (24 yo F)Acc No.[id number]:09/11/2024 Patient: DVAID FINNEY Provider: Vitor ALLISON NP :2000 A ge:24 Y S ex:Female Date:09/11/2024 Address:[address] , [facility] Subjective: * Chief Complaints: * 1 . 5mg. * Medical History: Objective: * Vitals: Assessment: Plan: * Treatment: * Images: Billing Information: * Visit Code: * Procedure Codes: * Electronic signature of JOSY ALLISON on 03/14/2025 at 05:16 PM EDT Sign off status: Pending * Provider: Vitor ALLISON NP Date: 09/11/2024 Generated for Fanny victoria/Jozef/Wesitting on: 0 03/14/2025 05:16 PM EDT
--- OUTSIDE RECORDS SUMMARY | 2024-09-12 06:15 | XMS_ITS ---
Author Organization [facility] [address] Address [address] [place] [address] Care Team Providers Care Merchandise Handler Name Role Phone ANSLEY ALLISON Unavailable [phone] REASON FOR VISIT 2.5mg Encounters Encounter Location Date Provider Diagnosis [facility] [address] [address] 09/12/2024 ANSLEY ALLISON Plan Of Treatment No Information Progress Notes * DAVID RIBEIRO MDOB: 8 (24 yo F)Acc No.[id number]:09/12/2024 Patient: DAVID FINNEY Provider: Vitor ALLISON NP :2000 A ge:24 Y S ex:Female Date:09/12/2024 Address:[address] , [facility] Subjective: * Chief Complaints: * 1 . 2.5mg. * Medical History: Objective: * Vitals: Assessment: Plan: * Treatment: * Images: Billing Information: * Visit Code: * Procedure Codes: * Electronic signature of JOSY ALLISON on 03/14/2025 at 05:16 PM EDT Sign off status: Pending * Provider: Vitor ALLISON NP Date: 09/12/2024 Generated for Fanny victoria/Jozef/eTransmitting on: 03/14/2025 05:16 PM EDT
--- OUTSIDE RECORDS SUMMARY | 2024-09-25 06:45 | XMS_ITS ---
Author Organization [facility] [address] Address [address] [place] [address] Care Team Providers Care Director Of Financial Reporting Name Role Phone ANSLEY ALLISON Unavailable [phone] REASON FOR VISIT trize 5mg Encounters Encounter Location Date Provider Diagnosis [facility] [address] [address] 09/25/2024 ANSLEY ALLISON Plan Of Treatment No Information Progress Notes * DAVID RIBEIRO MDOB: 8 (24 yo F)Acc No.[id number]:09/25/2024 Patient: DAVID FINNEY Provider: Vitor ALLISON NP :2000 A ge:24 Y S ex:Female Date:09/25/2024 Address:[address] , [facility] Subjective: * Chief Complaints: * 1 . Trize 5mg. * Medical History: Objective: * Vitals: Assessment: Plan: * Treatment: * Images: Billing Information: * Visit Code: * Procedure Codes: * Electronic signature of JOSY ALLISON on 03/14/2025 at 05:15 PM EDT Sign off status: Pending * Provider: Vitor ALLISON NP Date: 0 09/25/2024 Generated for Fanny victoria/Jozef/eTransmitting on: 0 03/14/2025 05:15 PM EDT
--- OUTSIDE RECORDS SUMMARY | 2025-03-14 17:15 | XMS_ITS | Clinical Summary ---
Author Organization [facility] Address [address] [place] [phone] Phone Care Team Providers Care Audit Machine Operator Name Role Phone Pcp, Unknown Primary Care [...] EDT) SODIUM 139 133 - 146 mmol/L [facility] CHLORIDE 101 96 - 108 mmol/L [facility] POTASSIUM 3.9 3.3 - 5.1 mmol/L [facility] CO2 23 21 - 35 mmol/L [facility] BUN 9 6 - 19 mg/dL [facility] CREATININE 0.70 0.5 - 1.5 mg/dL [facility] GLUCOSE 136(H) 70 - 99 mg/dL [facility] CALCIUM 9.6 8.4 - 10.3 mg/dL [facility] EGFR >120 >59 mL/min/1.7 3m2 [facility] Comment:Estimated glomerular filtration rate calculated using the CKD-EPI refit equation. ANION GAP 19 10 - 20 mmol/L [facility] Blood 08/30/2024 2:11 AM EDT 08/30/2024 2:14 AM EDT us Sudhir Yadav DO LAB BLOOD ORDERABLES Final Re sult [facility] [address] [place] [address] from Last 3 Months or Most Recently Relevant to Health Maintenance Insurance [facility] [employer] H[employer] Care Teams Audit Machine Operator Relationship Specialty Start Date End Date Pcp, Unknown PCP - General 08/30/24 Additional Source Comments The information contained in this document represents components of the legal health record. It is not the complete legal health record.[facility]
--- OUTSIDE RECORDS SUMMARY | 2025-03-14 17:15 | XMS_ITS | Encounter Summary ---
Author Organization [facility] Address [address] [place] [address] Phone Care Team Providers Care Hand Binder Stripper Name Role Phone Elenita Orlando MD Primary Care Provider [phone] Encounter Details Date Type Department Care Team (Late st Contact Info) Description 02/03/2017 Conversion Encounter [facility] [address] [place] [address] Social History Tobacco Use Types Packs/Day Years [...] on filedocumented in this encounter Care Teams Hand Binder Stripper Relationship Specialty Start Date End Date Elenita Orlando MD [address] [place] [address] PCP - General 01/28/17 10/05/22 documented as of this encounter
--- OUTSIDE RECORDS SUMMARY | 2025-03-14 17:16 | XMS_ITS | Patient Health Record ---
Author Organization [facility] [address] Address [address] [place] [address] Care Team Providers Care Hosiery Looper Name Role Phone ARCELIADOREEN ANSLEY Unavailable [phone] GUILHERME ELIZONDO Unavailable [phone] Sandra Minor Unavailable [phone] SAMSON JUAN ALBERTO Unavailable [phone] Allergies No Known Allergies Reason For Referral No Information Medications Medication SIG (Take, Route, Frequency, Duration) Notes Start Date End Date Status Tirzepatide-Weight Management 2.5 MG/0.5ML 0.5 mL Subcutaneous once a week Active Zepbound 5 MG/0.5ML 5mg weekly Subcutane ous weekly; Duration: 30 days Active Problems Problem Type SNOMED Code ICD Code Onset Dates Problem Status W/U Status Risk Notes Problem Overweight (827765586) Overweight (E66.3) Active confirmed Vital Signs Heart Rate 92 /min 08/14/2024 Oximetry 99 % 08/14/2024 Blood pressure diastolic 58 mm Hg 08/14/2024 Height 66 in 08/14/2024 Blood pressure systolic 110 mm Hg 08/14/2024 Weight 160 lbs 08/14/2024 BMI 25.82 kg/m2 08/14/2024 Encounters Encounter Location Date Provider Diagnosis [facility] [address] [facility] [address] [place] [address] 03/19/2024 ANSLEY ALLISON [facility] [address] [facility] [address] [place] [address] 03/26/2024 ANSLEY ALLISON [facility] [address] [facility] [address] [place] [address] 04/03/2024 ANSLEY ALLISON [facility] [address] [facility] [address] [place] [address] 04/10/2024 ANSLEY BORHOT [facility] [address] [address] [place] [address] 04/19/2024 Sandra Svrcek [facility] [address] [facility] [address] [place] [address] 05/04/2024 ANSLEY BORHOT [facility] [address] [facility] [address] [place], [place] 05/11/2024 ANSLEY BORHOT [facility] [address] [place] [address] 05/12/2024 GUERAOTTO ELIZONDO [facility] [address] [facility] [address] [place], [place] 05/21/2024 ANSLEY BORHOT [facility] [address] [facility] [address] [place] 05/28/2024 ANSLEY BORHOT [facility] [address] [facility] [address] [place] 06/04/2024 ANSLEY BORHOT [facility] [address] [facility] [address] [place] 06/11/2024 ANSLEY BORHOT [facility] [address] [facility] [address] [place] 06/18/2024 ANSLEY BORHOT [facility] [address] [facility] [address] [place], [place] 06/26/2024 ANSLEY BORHOT [facility] [address] [facility] [address] [place], [place] 07/18/2024 ANSLEY BORHOT [facility] [address] [facility] [address] [place] [address] 08/01/2024 ANSLEY BORHOT [facility] [address] [facility] [address] [place], [place] 08/28/2024 ANSLEY BORHOT [facility] [address] [place] [address] 04/28/2024 ANSLEY BORHOT Overweight E66.3 ; B CT 27.0-27.9,adult Z68.27 and Dietary counseling and surveillance Z71.[address] [facility] [address] [facility] [address] [place], [place] /15/2025 ANSLEY ALLISON Overweight E66.3 ; B CT 25.0-25.9,adult Z68.25 and Dietary counseling and surveillance Z71.3 [facility] [address] [facility] [address] [place] [address] 08/14/2024 ANSLEY ALLISON Overweight E66.3 ; B CT 25.0-25.9,adult Z68.25 and Dietary counseling and surveillance Z71.[address] [facility] [address] [address] [place] [address] 05/21/2024 ANSLEY PANIAGUAHOT [facility] [address] [facility] [address] [place] [address] 06/08/2024 ANSLEY ARCELIAHOT [facility] [address] [facility] [address] [place], [place] 09/11/2024 ANSLEY PANIAGUAHOT [facility] [address] [facility] [address] [place], [place] 10/23/2024 ANSLEY TELLOCitlalli Assessments Encounter Date [...] minimum of 6 months The most recent [place] [employer] of clinical endocrinologists and [place] [employer]ocrin[employer] guidelines recommend patients who [...] software and direct typing Please excuse inadvertent fiberglass boat parts finisher or typing errors, or uncorrected word substitutions Although every attempt has been made by the provider to proofread this document, occasional misspellings and typographical errors may still be present Due to the previous pandemic, and the use of personal protective equipment (PPE) This may decrease voice recognition accuracy Inadvertent fiberglass boat parts finisher errors may occur 04/28/2024 BMI 27.0-27.9,adult (ICD-10 [...] minimum of 6 months The most recent [place] [employer] of clinical endocrinologists and [place] [employer]in[employer] guidelines recommend patients who [...] software and direct typing Please excuse inadvertent fiberglass boat parts finisher or typing errors, or uncorrected word substitutions Although every attempt has been made by the provider to proofread this document, occasional misspellings and typographical errors may still be present Due to the previous pandemic, and the use of personal protective equipment (PPE) This may decrease voice recognition accuracy Inadvertent fiberglass boat parts finisher errors may occur 07/04/2024 Overweight (ICD-10 - E66.3) #Weight Management 07/04/2024 We will cut dosing by 50% and dose or every 2 weeks moving forward at 2.5 mg She is at target goal weight She will check with insurance company to see if [facility] [place] cover Zepbound Total time spent today was [...] minimum of 6 months The most recent [place] [employer] of clinical endocrinologists and [place] [employer]ocrin[employer] guidelines recommend patients who [...] software and direct typing Please excuse inadvertent fiberglass boat parts finisher or typing errors, or uncorrected word substitutions Although every attempt has been made by the provider to proofread this document, occasional misspellings and typographical errors may still be present Due to the previous pandemic, and the use of personal protective equipment (PPE) This may decrease voice recognition accuracy Inadvertent fiberglass boat parts finisher errors may occur 07/04/2024 BMI 25.0-25.9,adult (ICD-10 - Z68.25) #Weight Management 07/04/2024 We will cut dosing by 50% and dose or every 2 weeks moving forward at 2.5 mg She is at target goal weight She will check with insurance company to see if [facility] [place] cover Zepbound Total time spent today was [...] minimum of 6 months The most recent [place] [employer] of clinical endocrinologists and [place] [employer]in[employer] guidelines recommend patients who [...] software and direct typing Please excuse inadvertent fiberglass boat parts finisher or typing errors, or uncorrected word substitutions Although every attempt has been made by the provider to proofread this document, occasional misspellings and typographical errors may still be present Due to the previous pandemic, and the use of personal protective equipment (PPE) This may decrease voice recognition accuracy Inadvertent fiberglass boat parts finisher errors may occur 08/14/2024 Overweight (ICD-10 - E66.3) #Weight Management 08/14/2024 Increase to 5 mg every 2 weeks for maintenance She is at target goal weight She will check with [employer] to see if [facility] [place] cover Zepbound Total time spent today was [...] software and direct typing Please excuse inadvertent fiberglass boat parts finisher or typing errors, or uncorrected word substitutions Although every attempt has been made by the provider to proofread this document, occasional misspellings and typographical errors may still be present Due to the previous pandemic, and the use of personal protective equipment (PPE) This may decrease voice recognition accuracy Inadvertent fiberglass boat parts finisher errors may occur 08/14/2024 BMI 25.0-25.9,adult (ICD-10 - Z68.25) #Weight Management 08/14/2024 Increase to 5 mg every 2 weeks for maintenance She is at target goal weight She will check with [employer] to see if [facility] [place] cover Zepbound Total time spent today was [...] software and direct typing Please excuse inadvertent fiberglass boat parts finisher or typing errors, or uncorrected word substitutions Although every attempt has been made by the provider to proofread this document, occasional misspellings and typographical errors may still be present Due to the previous pandemic, and the use of personal protective equipment (PPE) This may decrease voice recognition accuracy Inadvertent fiberglass boat parts finisher errors may occur 07/04/2024 Dietary counseling and surveillance (ICD-10 - Z71.3) #Weight Management 07/04/2024 We will cut dosing by 50% and dose or every 2 weeks moving forward at 2.5 mg She is at target goal weight She will check with insurance company to see if [facility] [place] cover Zepbound Total time spent today was [...] minimum of 6 months The most recent [place] [employer] of clinical endocrinologists and [place] [employer] of endocrinology guidelines recommend patients who [...] software and direct typing Please excuse inadvertent fiberglass boat parts finisher or typing errors, or uncorrected word substitutions Although every attempt has been made by the provider to proofread this document, occasional misspellings and typographical errors may still be present Due to the previous pandemic, and the use of personal protective equipment (PPE) This may decrease voice recognition accuracy Inadvertent fiberglass boat parts finisher errors may occur 04/28/2024 Dietary counseling and [...] minimum of 6 months The most recent [place] [employer] of clinical endocrinologists and [place] [employer] of endocrinology guidelines recommend patients who [...] software and direct typing Please excuse inadvertent fiberglass boat parts finisher or typing errors, or uncorrected word substitutions Although every attempt has been made by the provider to proofread this document, occasional misspellings and typographical errors may still be present Due to the previous pandemic, and the use of personal protective equipment (PPE) This may decrease voice recognition accuracy Inadvertent fiberglass boat parts finisher errors may occur 08/14/2024 Dietary counseling and surveillance (ICD-10 - Z71.3) #Weight Management 08/14/2024 Increase to 5 mg every 2 weeks for maintenance She is at target goal weight She will check with insurance company to see if [facility] [place] cover Zepbound Total time spent today was [...] software and direct typing Please excuse inadvertent fiberglass boat parts finisher or typing errors, or uncorrected word substitutions Although every attempt has been made by the provider to proofread this document, occasional misspellings and typographical errors may still be present Due to the previous pandemic, and the use of personal protective equipment (PPE) This may decrease voice recognition accuracy Inadvertent fiberglass boat parts finisher errors may occur Plan Of Treatment No Information Insurance Providers Payer Name Payer Address Payer Phone Subscriber Number Group Number Insured Name Patient Relationship to Insured Coverage Start Date Coverage End Date [employer] [address] [place] [id number] [phone] [id number] DAVID RIBEIRO Self - patient is the [...]
--- OUTSIDE RECORDS SUMMARY | 2025-03-14 17:16 | XMS_ITS | Clinical Summary ---
Author Organization [facility] Address [address] [place] [phone] Phone Care Team Providers Care Automatic Blocker Name Role Phone Unavailable Primary Care Provider [...]
[2025-03-28 08:14] VITALS: BMI 27.4
--- NOTE | 2025-03-29 09:02 | HO.ANESPROP2 ---
Documented by User: Latonya Rivera NP 03/29/25 09:02 HPI - Anesthesia Eval Consult details Narrative: 24yo F for Upper Endoscopy and Colonoscopy [facility] Active Problems Active Problems: All Active Problems GERD (gastroesophageal reflux disease) (Acute) Past Medical History Medical History (Updated 03/27/25 @ 13:01 by Sarah Cadena RN) Migraine GERD (gastroesophageal reflux disease) Family History Family History (Updated 03/12/25 @ 13:04 by JESSICA Martinez) Maternal Grandfather CHF (congestive heart failure) Maternal Grandmother Breast cancer Thyroid cancer Paternal Grandfather Diabetes Mother Hemochromatosis Surgical History Surgical History (Updated 03/12/25 @ 13:09 by JESSICA Martinez) H/O rhinoplasty Social History Social History (Updated 03/12/25 @ 13:04 by JESSICA Martinez) Alcohol intake: never Patient Tobacco Use Status: Never used Tobacco Have you been hit, kicked, punched, or otherwise hurt by someone within the past year? If so, by whom?: No Are you DNR?: No Advance Directives: No Advance Directives Information Provided: Yes Patient : No Meds Allergies Allergy/AdvReac Type Severity Reaction Status Date / Time No Known Allergies Allergy Verified 03/12/25 12:59 Home Medications ?Medication ?Instructions ?Recorded ?Confirmed ?Last Taken ?Type cholecalciferol (vitamin D3) 25 25 mcg PO DAILY 03/12/25 03/28/25 Unknown History mcg (1,000 unit) capsule hydroxyzine HCl 25 mg tablet 25 mg PO BEDTIME 03/12/25 03/28/25 Unknown History omeprazole 20 mg capsule,delayed 20 mg PO DAILY 03/12/25 03/28/25 Unknown History release Exam Height,Weight and Vital Signs: Height 5 ft 6 in Weight 77.111 kg Assessment and Plan Assessment Anesthesia Assessment: Chart Reviewed Documented by User: Wolf Pearson MD 04/02/25 10:40 [facility] Past Medical History Medical History (Updated 03/27/25 @ 13:01 by Sarah Cadena RN) Migraine GERD (gastroesophageal reflux disease) Family History Family History (Updated 03/12/25 @ 13:04 by JESSICA Martinez) Maternal Grandfather CHF (congestive heart failure) Maternal Grandmother Breast cancer Thyroid cancer Paternal Grandfather Diabetes Mother Hemochromatosis Family history of problems with anesthesia: No Surgical History Surgical History (Updated 03/12/25 @ 13:09 by JESSICA Martinez) H/O rhinoplasty History of Problems with Anesthesia: No Social History Social History (Updated 03/12/25 @ 13:04 by JESSICA Martinez) Alcohol intake: never Patient Tobacco Use Status: Never used Tobacco Have you been hit, kicked, punched, or otherwise hurt by someone within the past year? If so, by whom?: No Are you DNR?: No Advance Directives: No Advance Directives Information Provided: Yes Patient : No Meds Allergies Allergy/AdvReac Type Severity Reaction Status Date / Time No Known Allergies Allergy Verified 03/12/25 12:59 Home Medications ?Medication ?Instructions ?Recorded ?Confirmed ?Last Taken ?Type cholecalciferol (vitamin D3) 25 25 mcg PO DAILY 03/12/25 03/28/25 Unknown History mcg (1,000 unit) capsule hydroxyzine HCl 25 mg tablet 25 mg PO BEDTIME 03/12/25 03/28/25 Unknown History omeprazole 20 mg capsule,delayed 20 mg PO DAILY 03/12/25 03/28/25 Unknown History release Exam Exam Date and Time: 04/02/25 Airway Mallampati Class: II TM Dist: >3cm Neck ROM: Full Heart: rrr Lungs: ctab Assessment and Plan Assessment Anesthesia Assessment: Anesthesia Plan Discussed Final Anesthetic Review Family History of Problems with Anesthesia: No History of Problems with Anesthesia: No NPO: Yes ASA Class: II Final Preanesthetic Review: No Changes in Pt Med Stat, Meds/Allgs Chart Reviewed, Consent Obtained/Reviewed and Anes Risks/Benef Reviewed Patient Risk: Low Procedure Risk: Low Anesthetic Plan Anesthetic Plan: MAC: Disposition: Standard PACU
[2025-04-02 09:29] VITALS: BP 128/76; PULSE 87; RESP 18; TEMP 36.1; O2SAT 97; BMI 27.4
[2025-04-02 09:31] LABS: UPreg QC Valid YES
[2025-04-02] MEDS: Lactated Ringers 1,000 ML 100 ML IVCONT (09:38)
--- NOTE | 2025-04-02 09:57 | MHC.SHP ---
Pre-Procedural Eval Section A - 24 Hr Update-Section A only Date of Service: 04/02/25 The patient is an INPATIENT: No The patient has been examined within 24 hours of the surgical procedure. The History & Physical has been completed within 30 days and I have reviewed it.: Yes Section B - Complete if H&P > 30 days Chief Complaint: gerd,rectal bleeding,diarrhea Details of Present Illness: Pt with intermittent GERD with globus sensation. Has also been experiencing fluctuating BMs between diarrhea and constipation with occ rectal bleeding. No fam hx of CRC. here for EGD/colo for evaluation. Present Medications: see Short Stay Collaborative assessment Allergies: Allergies Allergy/AdvReac Type Severity Reaction Status Date / Time No Known Allergies Allergy Verified 03/12/25 12:59 Plan Diagnosis/Plan: Unchanged I have reviewed the history and physical and performed a pertinent physical examination on my patient. No changes have occurred unless specified. Time Spent With Patient Time: Total time managing care of this patient today ____ minutes.
--- NOTE | 2025-04-02 11:20 | P.OPN-COLO_ITS ---
Colonoscopy Operative Note Operative Note Date of Service: 04/02/25 Narrative: Procedure: Upper endoscopy and colonoscopy Indication: Dysphagia, GERD, diarrhea, rectal bleeding Endoscopist: Jailene Augustin MD Anesthesia Provider: Dr Wolf Pearson Anesthesia type: MAC Instrument: [id number] and [id number] EGD Procedure:?? The procedure, indications, preparation and potential complications were reviewed with the patient, who indicated understanding and gave written informed consent to proceed. The endoscope was introduced through the mouth, and advanced to the 2nd part of the duodenum. The mucosa was carefully examined on slow withdrawal of the endoscope. The patient tolerated the procedure well. There were no immediate complications.? EGD Findings:? * Esophagus: A focal area of heterotopic gastric mucosa noted in upper esophagus consistent with inlet patch which is a physiological variant. Otherwise, normal esophageal mucosa was noted. The Z-line was at 36 cm. Cold forceps biopsies were taken from middle and lower esophagus to rule out eosinophilic esophagitis. * Stomach:?Erythema and erosions in the antrum with scant heme. Retroflexion was performed in the cardia. Cold forceps biopsies were taken from the stomach body and antrum. * Duodenum:? Normal duodenal mucosa. Cold forceps biopsies were taken from the duodenal bulb and 2nd portion of the duodenum to rule out celiac sprue. Colonoscopy Procedure:? The patient was then turned for the colonoscopy. A digital rectal exam was performed which was normal.? A distal attachment cap was affixed to the tip of the scope and the colonoscope was then inserted through the anus and advanced through the colon and advanced to the cecum at 70 cm and terminal ileum.? Appendiceal orifice and ileocecal valve were identified. Mucosa was carefully examined under high definition white light as the instrument was slowly withdrawn in a retrograde panoramic fashion. Retroflexion was performed in rectum. The procedure was not difficult. The quality of the prep was BBPS: 3+3+3 = adequate Withdrawal time 6 minutes Limitations: No limitations Findings: Mucosa: Normal colon and terminal ileum mucosa. Cold forceps biopsies were taken from right and left side of the colon rule out microscopic colitis. Protruding lesions: * One sessile polyp of size 2 mm in sigmoid colon. Cold forceps polypectomy was performed. The polyp was completely removed and retrieved. * Medium internal hemorrhoids with stigmata of recent bleeding. Impression: 1. Inlet patch 2. Normal esophageal mucosa (biopsy) 3. Gastritis (biopsy) 4. Normal duodenum (biopsy) 5. Normal colon and terminal ileum mucosa (biopsy) 6. 1 polyp removed 7. Internal hemorrhoids Recommendations:?? * Follow-up path results * Avoid NSAIDs * Increase omeprazole to BID x 8-12 weeks and then once daily * H Pylori treatment if biopsies + * If polyp is hyperplastic/benign, commence colonoscopy for CRC screening at age 45.
[2025-04-02 11:24] VITALS: BP 114/64; PULSE 83; RESP 14; TEMP 37.1; O2SAT 98
[2025-04-02 11:39] VITALS: BP 104/65; PULSE 89; RESP 16; TEMP 36.6; O2SAT 100
== END 2025-04-02 12:24 | disposition home or self-care (01) ==
PROVIDERS: Nurse Practitioner; PCP Physician Assistant Medical; Visit Provider Internal Medicine
PROC: (CPT 45380; principal; 2025-04-02 11:10)
DX: K21.9 Gastro-esophageal reflux disease without esophagitis (principal); K62.5 Hemorrhage of anus and rectum; R19.7 Diarrhea, unspecified; R10.9 Unspecified abdominal pain; K59.00 Constipation, unspecified; Z12.11 Encounter for screening for malignant neoplasm of colon; R13.10 Dysphagia, unspecified; K29.70 Gastritis, unspecified, without bleeding; K64.8 Other hemorrhoids; K63.5 Polyp of colon
CPT/HCPCS: 45380; 43239; 81025; 88305; 88313; 88341; 88342; J2003; J2250; J2704; J3010

== ENCOUNTER → 2025-04-02 08:44 | Outpatient (BNV) | payer OTHER, SELFPAY | PROVIDERS: PCP Physician Assistant Medical; Visit Provider Internal Medicine | DX: K21.9 Gastro-esophageal reflux disease without esophagitis (principal); K22.89 Other specified disease of esophagus; K29.70 Gastritis, unspecified, without bleeding; K62.5 Hemorrhage of anus and rectum; D12.5 Benign neoplasm of sigmoid colon; K64.8 Other hemorrhoids | CPT/HCPCS: 43239; 45380 ==